=== PATIENT | female | born 1950 | race Hispanic/Latino ===

== ENCOUNTER → 2017-04-30 | Outpatient (CLI) | payer OTHER ==
--- NOTE | 2017-04-30 16:01 | Diagnostic Imaging Report ---
PROCEDURE: Frontal and lateral views of the chest. COMPARISON: None. INDICATIONS: BLOOD PRESSURE FINDINGS: Lines/tubes: None. Lungs: The lungs are well inflated and clear. There is no evidence of pneumonia or pulmonary edema. Pleura: There is no pleural effusion or pneumothorax. Heart and mediastinum: Mildly tortuous aorta. The heart and the mediastinum are normal. Bones: No acute bony abnormality. IMPRESSION: No acute cardiopulmonary disease. Dictated by: Faustino Whiteside M.D. on 04/30/2017 at 16:10 Electronically approved by: Faustino Whiteside M.D. on 04/30/2017 at 16:10
== END ==
LOC: RAD 15:20
PROVIDERS: ATTEND Family Medicine
DX: D72.829 Elevated white blood cell count, unspecified (principal)
CPT/HCPCS: 71046

== ENCOUNTER → 2017-07-31 | Outpatient (CLI) | payer MEDICARE, BC ==
--- NOTE | 2017-07-31 18:06 | Diagnostic Imaging Report ---
PROCEDURE:EXTREMITY ULTRASOUND COMPARISON:None. INDICATIONS:B Cell Chronic Lymphocytic Leukemia TECHNIQUE:Durand scale, color Doppler sonographic images of bilateral axillary regions were performed. FINDINGS: Several lymph nodes are noted in the right axillary region, with the largest measuring 2.3 x 0.8 x 1.5 cm and showing normal fatty hilum. Several lymph nodes are noted in the left axillary region, with the 2 largest as follows: 1.9 x 1.1 x 1.9 cm hypoechoic mildly enlarged lymph node with loss of normal fatty hilum. 1.2 x 0.8 x 1.1 cm hypoechoic lymph node with loss of normal fatty hilum. CONCLUSION: 1. Mildly enlarged left axillary lymph node with loss of normal fatty hilum, likely reflecting known CLL. A second lymph node in the left axilla also shows loss of normal fatty hilum. 2. Normal sized, normal appearing lymph node in the right axillary region. Richard Sullivan M.D. Dictated by: Richard Sullivan M.D. on 07/31/2017 at 18:07 Electronically approved by: Richard Sullivan M.D. on 07/31/2017 at 18:07
== END ==
LOC: US 16:14
PROVIDERS: ATTEND Family Medicine
DX: C91.10 Chronic lymphocytic leukemia of B-cell type not having achieved remission (principal)
CPT/HCPCS: 76882

== ENCOUNTER 2021-09-13 23:36 | Emergency (ER) | payer MEDICARE, OTHER ==
[~2021-09-13] VITALS: Ht 149.9 cm; Wt 68.0 kg
== END 2021-09-14 01:11 | disposition home or self-care (01) ==
LOC: ER 23:42
DX: S63.592A Other specified sprain of left wrist, initial encounter (principal); W01.0XXA Fall on same level from slipping, tripping and stumbling without subsequent striking against object, initial encounter; Y93.01 Activity, walking, marching and hiking; Y92.89 Other specified places as the place of occurrence of the external cause; I10 Essential (primary) hypertension; E11.9 Type 2 diabetes mellitus without complications; M81.0 Age-related osteoporosis without current pathological fracture
CPT/HCPCS: 99283

== ENCOUNTER 2024-06-09 17:58 | Inpatient (IN) | payer MEDICARE ==
[~2024-06-09] VITALS: Ht 149.9 cm; Wt 68.0 kg
[2024-06-09 18:29] VITALS: TEMP 98.2
[2024-06-09] MEDS: SODIUM CHLORIDE 0.9% 1000ML 1,000 ML IV ONE (20:24)
[2024-06-09 20:31] LABS: BASOPHILS # (AUTO) 0.1 (0.0-0.1); BASOPHILS % 0.2 % (0.0-1.0); EOSINOPHILS # (AUTO) 0.2 (0.0-0.4); EOSINOPHILS % 0.9 % (0.0-6.0); HEMATOCRIT 33.7 % (34.2-44.1); HEMOGLOBIN 11.4 g/dL (12.0-16.0); LYMPHOCYTES # (AUTO) 11.4 (1.0-3.2); LYMPHOCYTES % 42.2 % (18.0-39.1); MEAN CORPUSCULAR HEMOGLOBIN 32.7 pg (28-32); MEAN CORPUSCULAR HGB CONC 33.8 g/dL (31-35); MEAN CORPUSCULAR VOLUME 96.6 fL (81-99); MONOCYTES # (AUTO) 0.8 (0.2-0.8); NEUTROPHILS # (AUTO) 14.3 (2.1-6.9); NEUTROPHILS % 53.1 % (38.7-80.0); PLATELET COUNT 107 x10e3/uL (140-360); RED BLOOD COUNT 3.49 x10e6/uL (3.6-5.1); RED CELL DISTRIBUTION WIDTH 11.7 % (11.7-14.4); WHITE BLOOD COUNT 26.99 x10e3/uL (4.8-10.8)
[2024-06-09 20:51] LABS: ALBUMIN 4.2 g/dL (3.5-5.0); ALBUMIN/GLOBULIN RATIO 1.4 (0.8-2.0); ANION GAP 15.3 mmol/L (8-16); BILIRUBIN,TOTAL 0.8 mg/dL (0.2-1.2); CALCIUM 9.2 mg/dL (8.4-10.2); CREATININE, SERUM 1.29 mg/dL (0.57-1.11); POTASSIUM 4.3 mmol/L (3.5-5.1); TOTAL PROTEIN 7.3 g/dL (6.5-8.1)
[2024-06-09 21:00] VITALS: BP 148/77; O2SAT 95
[2024-06-09] MEDS ORDERED: IOPAMIDOL 370 MG/ML 100 ML INFUS..BTL INJ ONE (21:20)
[2024-06-09 22:21] LABS: CLARITY,URINE CLEAR (CLEAR); COLOR,URINE YELLOW (YELLOW); LEUKOCYTE ESTERASE ,URINE NEGATIVE (NEGATIVE); NITRITE,URINE NEGATIVE (NEGATIVE); PH,URINE 7 (5 - 7)
[2024-06-09 22:22] LABS: BACTERIA,URINE MANY /HPF; BILIRUBIN,URINE NEGATIVE (NEGATIVE); EPITHELIAL CELLS,URINE FEW /LPF; GLUCOSE, URINE 500 (NEGATIVE); KETONES,URINE NEGATIVE (NEGATIVE); PROTEIN,URINE DIPSTICK NEGATIVE (NEGATIVE); RBC,URINE 0-5 /HPF (0-5); URINE UROBILINOGEN 1 mg/dL (0.2 - 1)
[2024-06-09 23:00] VITALS: PULSE 97; RESP 17
[2024-06-09 23:05] VITALS: PULSE 97; RESP 20; O2SAT 99
[2024-06-09] MEDS ORDERED: ONDANSETRON HCL INJ 2MG/ML 2ML 2 MG/ML VIAL IV PRN (23:15)
[2024-06-09] MEDS ORDERED: SODIUM CHLORIDE FLUSH 10 ML SYR INJ PRN (23:15)
[2024-06-09] MEDS ORDERED: DEXTROSE 50% SYRINGE 50 ML IV PRN (23:15)
[2024-06-09 23:54] VITALS: BP 121/77; PULSE 97; RESP 20; TEMP 98.4; O2SAT 99
[2024-06-09] MEDS ORDERED: BUPROPION XL150 MG PO (23:58)
[2024-06-09] MEDS ORDERED: GEMTESA75 MG PO (23:58)
[2024-06-09] MEDS ORDERED: LOSARTAN POTAS100 MG PO (23:59)
[2024-06-10] VITALS (10 sets, daily range): BP systolic 140–169; BP diastolic 67–97; PULSE 83–100; RESP 17–20; TEMP 97–98.8; O2SAT 96–100
[2024-06-10] MEDS ORDERED: CARVEDILOL3.125 MG PO
[2024-06-10] MEDS ORDERED: ERGOCALCIFEROL1 GM PO (00:04)
[2024-06-10] MEDS ORDERED: METFORMIN HCL500 M1 PO (00:05)
[2024-06-10] MEDS ORDERED: ALENDRONAT70 MG/75 M PO (00:09)
[2024-06-10] MEDS ORDERED: JARDIANCE25 MG PO (00:09)
[2024-06-10] MEDS ORDERED: ROSUVASTATIN CA10 MG PO (00:10)
[2024-06-10] MEDS: ACETAMINOPHEN 325 MG TAB PO PRN (00:33)
[2024-06-10 05:48] LABS: EOSINOPHILS % (MANUAL) 4 % (0-7); LYMPHOCYTES % (MANUAL) 34 % (19-48); MONOCYTES % (MANUAL) 3 % (3.4-9.0); NEUTROPHILS % (MANUAL) 57 % (40-74); PLATELET ESTIMATE SLIGHTLY DECREASED; REACTIVE LYMPHOCYTES 2
[2024-06-10 05:49] LABS: PLATELET MORPHOLOGY COMMENT NORMAL; RBC MORPHOLOGY COMMENT NORMAL
[2024-06-10 05:53] LABS: BASOPHILS # (AUTO) 0.1 (0.0-0.1); BASOPHILS % 0.3 % (0.0-1.0); EOSINOPHILS # (AUTO) 0.3 (0.0-0.4); HEMATOCRIT 32.3 % (34.2-44.1); LYMPHOCYTES # (AUTO) 13.5 (1.0-3.2); MEAN CORPUSCULAR HEMOGLOBIN 33.1 pg (28-32); MEAN CORPUSCULAR HGB CONC 34.1 g/dL (31-35); MEAN CORPUSCULAR VOLUME 97.3 fL (81-99); MONOCYTES # (AUTO) 0.8 (0.2-0.8); MONOCYTES % 2.9 % (4.4-11.3); NEUTROPHILS # (AUTO) 11.3 (2.1-6.9); NEUTROPHILS % 43.4 % (38.7-80.0); PLATELET COUNT 113 x10e3/uL (140-360); RED BLOOD COUNT 3.32 x10e6/uL (3.6-5.1); RED CELL DISTRIBUTION WIDTH 11.6 % (11.7-14.4); WHITE BLOOD COUNT 26.02 x10e3/uL (4.8-10.8)
[2024-06-10 06:19] LABS: ALBUMIN 4.1 g/dL (3.5-5.0); ALBUMIN/GLOBULIN RATIO 1.3 (0.8-2.0); ANION GAP 15.1 mmol/L (8-16); BILIRUBIN,TOTAL 0.8 mg/dL (0.2-1.2); CALCIUM 8.8 mg/dL (8.4-10.2); CREATININE, SERUM 1.22 mg/dL (0.57-1.11); POTASSIUM 4.1 mmol/L (3.5-5.1); TOTAL PROTEIN 7.2 g/dL (6.5-8.1)
[2024-06-10] MEDS: INSULIN REGULAR, HUMAN 100 UNIT/1 ML SQ SCH (07:30)
[2024-06-10 07:38] LABS: LYMPHOCYTES % (MANUAL) 42 % (19-48); MONOCYTES % (MANUAL) 2 % (3.4-9.0); NEUTROPHILS % (MANUAL) 56 % (40-74); PLATELET ESTIMATE SLIGHTLY DECREASED; PLATELET MORPHOLOGY COMMENT NORMAL; RBC MORPHOLOGY COMMENT NORMAL
[2024-06-10] MEDS: INSULIN LISPRO 100 UNIT/1 ML 3ML VIAL SQ SCH (21:00)
[2024-06-11 03:12] VITALS: BP 135/72; PULSE 89; RESP 18; TEMP 98.5; O2SAT 97
[2024-06-11] MEDS: TRAMADOL HCL 50 MG TAB PO PRN (05:57)
[2024-06-11 06:59] LABS: BASOPHILS # (AUTO) 0.1 (0.0-0.1); BASOPHILS % 0.4 % (0.0-1.0); EOSINOPHILS # (AUTO) 0.3 (0.0-0.4); EOSINOPHILS % 1.4 % (0.0-6.0); HEMATOCRIT 34.4 % (34.2-44.1); HEMOGLOBIN 11.6 g/dL (12.0-16.0); LYMPHOCYTES # (AUTO) 11.2 (1.0-3.2); MEAN CORPUSCULAR HGB CONC 33.7 g/dL (31-35); MONOCYTES # (AUTO) 0.8 (0.2-0.8); MONOCYTES % 3.9 % (4.4-11.3); PLATELET COUNT 105 x10e3/uL (140-360); RED BLOOD COUNT 3.51 x10e6/uL (3.6-5.1); RED CELL DISTRIBUTION WIDTH 11.8 % (11.7-14.4); WHITE BLOOD COUNT 21.45 x10e3/uL (4.8-10.8)
[2024-06-11 07:45] LABS: T3 UPTAKE 26.45 % (22.5-37.0); THYROID STIMULATING HORMONE 4.152 uIU/mL (0.350-4.940)
[2024-06-11 07:54] LABS: ALBUMIN 4.1 g/dL (3.5-5.0); ALBUMIN/GLOBULIN RATIO 1.2 (0.8-2.0); ANION GAP 18.5 mmol/L (8-16); CALCIUM 9.1 mg/dL (8.4-10.2); CREATININE, SERUM 1.3 mg/dL (0.57-1.11); POTASSIUM 4.5 mmol/L (3.5-5.1); TOTAL PROTEIN 7.4 g/dL (6.5-8.1)
[2024-06-11 08:04] LABS: T4 (THYROXINE) 7.28 ug/dL (4.5-10.9)
[2024-06-11 08:06] LABS: CHOL/HDL RATIO 2.7 (3.0-3.6)
[2024-06-11 08:40] VITALS: BP 123/74; PULSE 81; RESP 18; TEMP 98.3; O2SAT 95
[2024-06-11] MEDS: ASPIRIN 325 MG TAB PO SCH (08:50)
[2024-06-11 09:38] VITALS: BP 123/74; PULSE 81; RESP 18; TEMP 98.3; O2SAT 95
[2024-06-11 10:28] LABS: PLATELET ESTIMATE SLIGHTLY DECREASED; PLATELET MORPHOLOGY COMMENT NORMAL
[2024-06-11 11:51] LABS: NEUTROPHILS % (MANUAL) 52 % (40-74)
[2024-06-11 11:52] LABS: EOSINOPHILS % (MANUAL) 1 % (0-7); LYMPHOCYTES % (MANUAL) 42 % (19-48); MONOCYTES % (MANUAL) 5 % (3.4-9.0)
[2024-06-11 14:59] VITALS: BP 146/70; PULSE 78; RESP 18; TEMP 98.4; O2SAT 96
[2024-06-11 17:12] VITALS: BP 153/77; PULSE 81; RESP 18; TEMP 97.8; O2SAT 96
[2024-06-11] MEDS ORDERED: ATORVASTATIN 40 MG TAB PO SCH (21:00)
== END 2024-06-11 20:37 | disposition home or self-care (01) | DRG 65 ==
LOC: ER 19:13 → ERHOLD 23:10 → MED/SURG3 23:45 → OBSVTOIN 06-11 10:48
PROVIDERS: ADMIT Family Medicine; ATTEND Family Medicine
DX: I63.89 Other cerebral infarction (principal); G81.91 Hemiplegia, unspecified affecting right dominant side; N39.0 Urinary tract infection, site not specified; D69.6 Thrombocytopenia, unspecified; R29.6 Repeated falls; I12.9 Hypertensive chronic kidney disease with stage 1 through stage 4 chronic kidney disease, or unspecified chronic kidney disease; E11.22 Type 2 diabetes mellitus with diabetic chronic kidney disease; N18.31 Chronic kidney disease, stage 3a; E78.5 Hyperlipidemia, unspecified; M81.0 Age-related osteoporosis without current pathological fracture; F32.A Depression, unspecified; R53.81 Other malaise; W01.198A Fall on same level from slipping, tripping and stumbling with subsequent striking against other object, initial encounter; Y92.009 Unspecified place in unspecified non-institutional (private) residence as the place of occurrence of the external cause
CPT/HCPCS: 36415; 70450; 70496; 70498; 70551; 71045; 72125; 80053; 80061; 81001; 82948; 83036; 83605; 83735; 84436; 84443; 84479; 84484; 85025; 87040; 87086; 87186; 93005; 93880; 94799; 99252; 99285; G0378; J0696; J7030; Q9967